=== PATIENT | male | born 1960 | race Caucasian/White ===

== ENCOUNTER 2023-02-08 15:14 | Outpatient (OUT) | payer OTHER, SELFPAY ==
[2023-02-08 15:31] LABS: Hematocrit 41.2 % (42.0-54.0); Mean Corpuscular Hemoglobin 33.3 pg (25.9-34.0); Mean Corpuscular Volume 98.1 fL (80.0-94.0); Mean Platelet Volume 8.7 fL (9.5-13.5); Platelet Count 324 10^3/uL (150-450); Red Cell Distribution Width 11.7 % (11.0-15.0); White Blood Count 11.3 10^3/uL (4.0-11.0)
[2023-02-08 15:48] LABS: Eosinophils Absolute Manual 3.61 10^3/uL (0.00-0.70); Lymphocytes Absolute Manual 3.61 10^3/uL (1.20-3.80); Monocytes Absolute Manual 0.22 10^3/uL (0.30-0.80); Segmented Neut Absolute Manual 3.84 10^3/uL (1.4-6.5)
[2023-02-08 15:49] LABS: Macrocytosis 1+
[2023-02-08 16:09] LABS: Anion Gap 15.1; BUN Creatinine Ratio 15.5; Calcium 8.8 mg/dL (8.5-10.1); Carbon Dioxide 27.3 mmol/L (21.0-32.0); Chloride 93 mmol/L (98-107); Chol HDL Ratio 2.6; Cholesterol 200 mg/dL (<=200); Estimated GFR (African America >60 (>=60); Estimated GFR (Non-African Ame >60 (>=60); Glucose 87 mg/dL (74-106); HDL Cholesterol 77 mg/dL (40-60); Potassium 4.4 mmol/L (3.5-5.1); Sodium 131 mmol/L (136-145); Triglycerides 74 mg/dL (<=150); VLDL CHOLESTEROL 14.8 mg/dL
[2023-02-08 16:23] LABS: Prostate Specific Antigen Scrn 1.62 ng/mL (<=4.00)
== END 2023-02-08 15:15 | disposition home or self-care (01) ==
LOC: LAB 15:14
PROVIDERS: PCP Family Medicine; Visit Provider Family Medicine
DX: Z00.00 Encounter for general adult medical examination without abnormal findings (principal); I10 Essential (primary) hypertension; Z12.5 Encounter for screening for malignant neoplasm of prostate
CPT/HCPCS: 36415; 80048; 80061; 85027; G0103

== ENCOUNTER 2024-02-14 15:13 | Outpatient (OUT) | payer OTHER, SELFPAY ==
[2024-02-14 15:54] LABS: Anion Gap 14.5; BUN Creatinine Ratio 11.5; Calcium 8.8 mg/dL (8.5-10.1); Carbon Dioxide 24.8 mmol/L (21.0-32.0); Chloride 92 mmol/L (98-107); Estimated GFR (African America >60 (>=60 mL/min/1.73m^2); Estimated GFR (Non-African Ame >60 (>=60 mL/min/1.73m^2); Glucose 96 mg/dL (74-106); Potassium 4.3 mmol/L (3.5-5.1); Sodium 127 mmol/L (136-145)
== END 2024-02-14 15:14 | disposition home or self-care (01) ==
LOC: LAB 15:15
PROVIDERS: PCP Family Medicine; Visit Provider Student in an Organized Health Care Education/Training Program
DX: I1A.0 Resistant hypertension (principal)
CPT/HCPCS: 36415; 80048

== ENCOUNTER 2024-06-02 07:05 | Outpatient (OUT) | payer OTHER, SELFPAY ==
--- OUTSIDE RECORDS SUMMARY | 2024-06-02 07:11 | XMS_ITS | CCD ---
Author Organization [facility] Care Team Providers Care Merchandise Execution Leader Name Role Phone HOUSE, DR CROCKER Consulting Unavailable ROSELLE, DR CROCKER Primary Care Unavailable ROSELLE, DR CROCKER Admitting Unavailable ROSELLE, DR CROCKER Attending Unavailable Cowden, DR Doll Consulting Unavailable ROSELLE, DR CORCKER Primary Care Unavailable ROSELLE, DR CROCKER Admitting Unavailable ROSELLE, DR CROCKER Attending Unavailable ROSELLE, DR CROCKER Consulting Unavailable Maida Vaca Unavailable Sarah Mane Unavailable MD Maida Vaca Primary Care Provider [phone] MD Richard Mallory Attending Provider MELIA MCCLELLAN Attending Unavailable MELIA MCCLELLAN Attending Unavailable KIRK LOYD Attending Unavailable MAIDA VACA Referring Unavailable KIRK LOYD Referring Unavailable MD Maida Vcaa Primary Care Provider DO Eduard Vazquez Attending Provider [phone] Maida Vaca Primary Care Unavailable Richard Mallory Admitting Obie Mallory, Richard Ladd Attending Maida Truong Primary Care Unavailable Eduard Vazquez Admitting Unavailable Eduard Vazquez Attending Unavailable Maida Vaca Primary Care Unavailable Richard Mallory Admitting Unavai lable Richard Mallory Attending Maida Truong Primary Care Unavailable Richard Mallory Admitting Unavai lable Rihcard Mallory Attending Maida Truong Primary Care Unavailable Richard Mallory Admitting Unavai lable Shawnee, Richard Ladd Attending Maida Truong Primary Care Unavailable Eduard Vazquez Attending Unavailable Eduard Vazquez Admitting Unavailable Maida Vaca Primary Care Unavailable Eduard Vazquez Admitting Unavailable Eduard Vazquez Attending Unavailable Allergies Allergy Classification Reported Allergen(s) Allergy Type Date of Onset Reaction(s) Facility (10 sources) Cortisone Drug Allergy [employer] [facility] Other (1 source) Cortisone Drug Allergy 01-20-2024 [facility] Repository Medications Current Medications Medication Drug Class(es) Dates Sig (Normalized) Sig (Original) ALPRAZolam 0.5 mg oral tablet (2 sources) Benzodiazepine Start: 01-06-2024 Alprazolam (Xanax) 0.5 mg tablet Active 0.5 MG PO Daily 2 January 06, 2024 12:00am take one tablet 1/2 hour prior to MRI. july repeat once if necessary amLODIPine 10 mg oral tablet (20 sources) Dihydropyridine Calcium Channel Tereso Start: 08-12-2023 End: 09-06-2023 take 10 mg by mouth once daily Amlodipine Active 10 MG PO Daily 90 September 06, 2023 11:33am Start: 07-29-2023 End: 08-12-2023 take 5 mg by mouth once daily Amlodipine Discontinued 5 MG PO Daily July 29, 2023 12:00am August 12, 2023 10:42am Start: 07-04-2023 End: 07-29-2023 take 1 tablet by mouth once daily Amlodipine Discontinued 0 .ROUTE .COMPLEX July 04, 2023 3:42pm July 29, 2023 1:57pm take 1 tablet by mouth daily Start: 07-02-2023 End: 07-04-2023 take 1 tablet by mouth once daily Amlodipine Discontinued 0 .ROUTE .COMPLEX July 02, 2023 2:53pm July 04, 2023 3:42pm take 1 tablet by mouth daily Start: 06-13-2023 End: 07-02-2023 take 1 tablet by mouth once daily Amlodipine (Norvasc) 5 mg tablet Discontinued 5 MG PO Daily June 13, 2023 12:00am July 02, 2023 2:53pm carvedilol 12.5 mg oral tablet (15 sources) alpha-Adrenergic Tereso, beta-Adrenergic Tereso Start: 08-12-2023 End: 09-06-2023 take 1 tablet by mouth twice daily at mealtime Carvedilol (Coreg) 12.5 mg tablet Active 12.5 MG PO Twice daily 180 90 September 06, 2023 11:32am must administer with a meal/food Start: 07-29-2023 End: 08-12-2023 take 1 tablet by mouth twice daily at mealtime Carvedilol (Coreg) 6.25 mg tablet Discontinued 6.25 MG PO Twice daily 60 30 July 29, 2023 12:00am August 12, 2023 10:41am must administer with a meal/food cetirizine hydrochloride 10 mg oral tablet (4 sources) Histamine-1 Receptor Antagonist Start: 02-04-2020 take 1 tablet by mouth every twenty-four hours Cetirizine HCl 10 MG 1 tablet Orally Once a day for 30 day(s) Jan, Active cloNIDine hydrochloride 0.1 mg oral tablet (20 sources) Central alpha-2 Adrenergic Agonist Start: 08-12-2023 End: 09-06-2023 take 0.1 mg by mouth twice daily Clonidine Hcl Active 0.1 MG PO Twice daily 180 90 September 06, 2023 11:33am Start: 06-06-2023 End: 08-12-2023 take 0.2 mg by mouth twice daily Clonidine Hcl Discontinued 0.2 MG PO Twice daily 60 June 06, 2023 12:00am August 12, 2023 10:40am Start: 05-29-2023 End: 06-06-2023 take 0.1 mg by mouth twice daily Clonidine Hcl Discontinued 0.1 MG PO Twice daily 60 May 29, 2023 1:00am June 06, 2023 3:54pm doxycycline hyclate 100 mg oral tablet (1 source) Tetracycline-class Drug Doxycycl ine Hyclate 100 MG Oral for 30 Days Active fluticasone propionate 0.05 mg/actuat metered dose nasal spray (4 sources) Corticosteroid Start: 020 take 1 spray(s) nasal route once daily Fluticasone Propionate 50 MCG/ACT 1 spray in each nostril Nasally Once a day for 30 day(s) Jan, Active 30 actuat fluticasone furoate 0.1 mg/actuat / umeclidinium 0.0625 mg/actuat / vilanterol 0.025 mg/actuat dry powder inhaler (4 sources) Anticholinergic, Corticosteroid, beta2-Adrenergic Agonist take 1 puff(s) by inhalation once daily Trelegy Ellipta 100-62.5-25 MCG/ACT 1 puff Inhalation Once a day Active lisinopril 20 mg oral tablet (18 sources) Angiotensin Converting Enzyme Inhibitor Start: End: take 20 mg by mouth once daily Lisinopril Active 20 MG PO Daily 90 90 September 06, 2023 11:33am take 1 tablet by jill th every twenty-four hours Lisinopril 20 MG 1 tablet once a day Active Completed/Discontinued Medications Medication Drug Class(es) Dates Sig (Normalized) Sig (Original) LORazepam 1 mg oral tablet (20 sources) Benzodiazepine Start: 05-27-2023 End: 12-26-2023 take 1 tablet by mouth twice daily Lorazepam Discontinued 1 MG PO Twice daily 60 30 May 28, 2023 1:55pm June 26, 2023 12:53pm [employer] tablet Orally twice a day; Note: Source Status: Refill; Refills: 0; Provider: Jaron Russell Start: 04-30-2023 take 1 tablet by jill th every twelve hours LORazepam 1 MG 1 tablet Orally twice a day for 30 days Apr, Active Start: 04-01-2023 take 1 tablet by jill th every twelve hours LORazepam 1 MG 1 tablet Orally twice a day for 30 days Mar, Active Start: 02-28-2023 take 1 tablet by jill th every twelve hours LORazepam 1 MG 1 tablet Orally twice a day for 30 days Feb, Active Start: 01-29-2023 take 1 tablet by jill th every twelve hours LORazepam 1 MG 1 tablet Orally twice a day for 30 days Jan, Active Start: 12-31-2022 take 1 tablet by jill th every twelve hours LORazepam 1 MG 1 tablet Orally twice a day for 30 days Dec, Active Start: 12-03-2022 take 1 tablet by jill th every twelve hours LORazepam 1 MG 1 tablet Orally twice a day for 30 days Nov, Active Start: 10-29-2022 take 1 tablet by jill th every twelve hours LORazepam 1 MG 1 tablet Orally twice a day for 30 days Oct, Active 24 hr metoprolol succinate 50 mg extended release oral tablet (20 sources) beta-Adrenergic Tereso Start: 06-06-2023 End: 07-29-2023 take 1 tablet by mouth twice daily Metoprolol Succinate Discontinued 50 MG PO Twice daily June 06, 2023 3:31pm July 29, 2023 1:27pm [employer] tablet Orally Once a day; Note: Source Status: Start; Provider: Jaron Russell Start: 05-27-2023 End: 06-06-2023 take 1 tablet by mouth once daily Metoprolol Succinate Discontinued 50 MG PO Daily May 27, 2023 1:00am June 06, 2023 3:31pm [employer] tablet Orally Once a day; Note: Source Status: Start; Provider: Jaron Russell Start: 05-16-2023 End: 06-06-2023 take 50 mg by mouth every twelve hours Metoprolol Tartrate Discontinued 50 MG PO Every 12 hours 60 May 16, 2023 1:00am June 06, 2023 3:30pm Start: 04-23-2023 take 1 tablet by jill th every twenty-four hours Metoprolol Succinate ER 50 MG 1 tablet Orally Once a day for 90 days Mar, Active omeprazole 40 mg delayed release oral capsule (20 sources) Proton Pump Inhibitor Start: 05-27-2023 End: 09-09-2023 take 40 mg by mouth once daily Omeprazole Discontinued 40 MG PO Daily 90 June 22, 2023 9:18am September 09, 2023 8:31am take 1 capsule by mouth once jeanmarie ly Omeprazole 40 MG 1 capsule 30 minutes before morning meal Orally Once a day Active Problems Active Problems Problem Classification Problem Date Documented Date Episodic/Chronic Anxiety disorders (20 sources) Anxiety; Translations: [Anxiety disorder, unspecified] Chronic Essential hypertension (20 sources) Essential hypertension; Translations: [Essential (primary) hypertension] Onset: 07-29-2023 Chronic Inflammation; infection of eye (except that caused by tuberculosis or sexually transmitteddisease) (1 source) Hordeolum externum left upper eyelid Episodic Other non-traumatic joint disorders (10 sources) Pain in left knee; Translations: [Left medial knee pain] Onset: 12-03-2023 11-26-2023 Episodic Other non-traumatic joint disorders (1 source) Liposynovitis prepatellaris; Translations: [Other specified joint disorders, left knee] 01-20-2024 Episodic Other non-traumatic joint disorders (1 source) Other specified joint disorders, left knee; Translations: [Other specified disorders of joint, lower leg] 01-20-2024 Episodic Other screening for suspected conditions (not mental disorders or infectious disease) (15 sources) Encounter for screening for malignant neoplasm of prostate; Translations: [Electrocardiogram abnormal] Episodic Other upper respiratory infections (1 source) Acute maxillary sinusitis, unspecified Episodic Sprains and strains (8 sources) Injury of articular cartilage of left knee joint; Translations: [Sprain of other specified parts of left knee, initial encounter] Onset: 01-20-2024 12-03-2023 Episodic Substance-related disorders (11 sources) Smoker; Translations: [Nicotine dependence, unspecified, uncomplicated] Chronic Unclassified (1 source) Resistant hypertension; Translations: [Resistant hypertension] Onset: 08-08-2023 Past or Other Problems Problem Classification Problem Date Documented Da te Episodic/Chronic Other injuries and conditions due to external causes (1 source) Other specified injuries of left ankle, initial encounter; Translations: [OTH SPEC INJURIES LT ANKLE INITIAL] Onset: 06-08-2021 Episodic Other lower respiratory disease (1 source) Dyspnea, unspecified; Translations: [Dyspnea, unspecified] Onset: 08-13-2023 Episodic Other non-traumatic joint disorders (4 sources) Pain in left ankle and joints of left foot; Translations: [PAIN IN LEFT ANKLE] Onset: 06-07-2021 Episodic Results Test Name Value Interpretation Reference Range Facility XR hip LT min 2V(w/wo pelvis )*on 01-20-2024 XR hip LT min 2V(w/wo pelvis)* [facility] [address] [place] [address] XRay Report Signed Patient: Donavon Fletcher MR#: [id number] : 1960 Acct:[id number] Age/Sex: 63 / M ADM Date: 01/20/24 Loc: [facility] Room: Type: [facility] Attending Dr: Eduard Vazquez DO Copies to: Eduard Vazquez DO Ordering Provider: Eduard Vazquez DO Date of Service: 01/20/24 XR/XR hip LT min 2V(w/wo pelvis)*: M25.562 - Pain in left knee 2 views LEFT hip with single view pelvis plain film COMPARISON: None HISTORY: Low lumbar pain with radiation into the LEFT leg ACUTE FINDINGS: None DEGENERATIVE CHANGE: Minor marginal spurring of hip joints. SOFT TISSUE FINDINGS: Unremarkable JOINT EFFUSION: None POSTOP CHANGES: None BONY MINERALIZATION: Adequate XR/XR hip LT min 2V(w/wo pelvis)* IMPRESSION: Mild degenerative change Impression dictated by: Chapito Peace M.D.01/20/2024 3:33 PM Dictation Location: [facility]- Transcribed By: [facility] 01/20/24 153 Dictated By: Chapito Peace DO 01/20/241531 Signed By: 01/20/241532 Normal [facility] MR knee LT wo conon 01-16-20 MR knee LT wo con [facility] [place] [address] MRI Report Signed Patient: Donavon Fletcher MR#: [id number] : 1960 Acct:[id number] Age/Sex: 63 / M ADM Date: 01/16/24 Loc: [facility] Room: Type: [facility] Attending Dr: Eduard Vazquez DO Copies to: Eduard Vazquez DO Ordering Provider: Eduard Vazquez DO Date of Service: 01/16/24 MR/MR knee LT wo con: eval for meniscus tear or other injury MR knee LT wo con 01/16/2024 11:54 AM SIGNS AND SYMPTOMS: eval for meniscus tear or other injury PROTOCOL: Multiplanar multisequence MR images of the left knee were obtained without IV contrast COMPARISON: None. FINDINGS: Fluid: No joint effusion.. Medial compartment: Medial meniscus: Intact. Medial collateral ligament: Intact. Medial femoral condyle cartilage: Preserved. Medial tibial plateau cartilage: Preserved. Lateral compartment: Lateral meniscus: Intact. Lateral collateral ligament: Intact. Lateral femoral condyle cartilage: Preserved. Lateral tibial plateau cartilage: Preserved. Posterolateral corner: Popliteus tendon: Intact. Popliteofibular ligament: Intact. Proximal tibiofibular joint: Intact. Anterior compartment: Alignment: Normal. Quadriceps tendon: Intact. Patellar tendon: Intact. Retinaculum: Medial intact. Lateral intact. Patellar cartilage: Preserved. Trochlea: Preserved. . Plica: None. Hoffa fat pad: Normal. There is edema in the quadriceps fat pad suspicious for quadriceps fat pad impingement. Intercondylar compartment: Anterior cruciate ligament: Intact. Posterior cruciate ligament: Intact. Bones (other than subarticular marrow): Normal. Muscles: Normal. Vessels: Normal. Nerves: Normal. MR/MR knee LT wo con IMPRESSION: There is edema in the quadriceps fat pad suspicious for quadriceps fat pad impingement. The left knee is otherwise grossly intact. Impression dictated by: Randolph Diego M.D.01/16/2024 3:31 PM Dictation Location: [place] [address] Transcribed By: [facility] 01/16/24 1531 Dictated By: Randolph Diego II, MD 01/16/24 1523 Signed By: 01/16/24 1531 Normal [facility] XR knee LT 4V*on 12-03-2023 XR knee LT 4V* [facility] [address] [place] [address] XRay Report Signed Patient: Donavon Fletcher MR#: [id number] : 1960 Acct:[id number] Age/Sex: 63 / M ADM Date: 12/03/23 Loc: [facility] Room: Type[facility] Attending Dr: Eduard Vazquez DO Copies to: Eduard Vazquez DO Ordering Provider: Eduard Vazquez DO Date of Service: 12/03/23 XR/XR knee LT 4V*: M25.562 - Pain in left knee ([id number]) XR/XR knee RT 2V: M25.562 - Pain in left knee CLINICAL DATA: Left medial knee pain for months. No injury. Right knee comparison. LEFT KNEE - 4 views COMPARISON: None Weightbearing AP, lateral, skiers and sunrise views were obtained. No acute fracture or dislocation is identified. There is subtle medial tibiofemoral joint compartment narrowing. There is no patellar subluxation. No hypertrophy is seen. There is no knee effusion or focal soft tissue swelling. XR/XR knee RT 2V IMPRESSION: NO ACUTE BONY FINDINGS. RIGHT KNEE - 2 views COMPARISON: None Weightbearing AP and sunrise views were obtained. There is no acute fracture or dislocation. There is subtle narrowing at the medial tibiofemoral joint compartment. No patellar subluxation is identified. No hypertrophy is seen. There is no soft tissue swelling. IMPRESSION: NO ACUTE BONY FINDINGS. Impression dictated by: Annabelle Wang M.D.12/03/2023 9:27 AM Dictation Location: [place] [address] Transcribed By: [facility] 12/03/23926 Dictated By: Annabelle Wang MD 12/03/23924 Signed By: 12/03/23926 Normal [facility] ECH echo transthoracicon ECH echo transthoracic [facility] [place] [address] Echocardiogram Signed Patient: Donavon Fletcher MR#: [id number] : 1960 Acct:[id number] Age/Sex: 63 / M ADM Date: 08/13/23 Loc: Room: Type: [facility] Attending Dr: Richard Mallory MD Ordering Provider: Richard Mallory MD Date of Service: 08/13/23 [facility] transthoracic: I10 - Essential (primary) hypertension Copies to: Richard Mallory MD Donavon 10:28 AM Patient Location: : 1960 Gender: Male (MM/DD/YYYY) Age: 63 Years Ordering Physician: Richard Mallory Height: 70.87 in Weight: 176.004 lb Performed By: Margareth Brito RDCS BSA: 1.99 m2 BP: 133 / 99 mmHg HR: 79 bpm Reason For Study: Essential (primary) hypertension History: HTN. Smoker. COPD. + + Interpretation Summary Ejection Fraction = 55-60%. A variety of Doppler measurements indicate normal left ventricular diastolic function. The left ventricular wall motion is normal. The left ventricular size and thickness are normal. Mildly dilated ascending aorta. There is no comparison study available. Procedure/Quality: A two-dimensional transthoracic echocardiogram with color flow and Doppler was performed. The study was technically good in quality. Left Ventricle: The left ventricular size and thickness are normal. Ejection Fraction = 55-60%. A variety of Doppler measurements indicate normal left ventricular diastolic function. The left ventricular wall motion is normal. Left Atrium: The left atrium appears normal in size. Right Atrium: The right atrium appears normal in size. Right Ventricle: The right ventricle is normal in size and function. Aortic Valve: The aortic valve is trileaflet. The aortic valve is normal in structure. No hemodynamically significant valvular aortic stenosis. No aortic regurgitation is present. Mitral Valve: The mitral valve is normal in structure. No significant mitral valve stenosis. There is no mitral regurgitation noted. Tricuspid Valve: The tricuspid valve is normal in structure. No tricuspid regurgitation. Pulmonic Valve: The pulmonic valve is not well visualized. No significant pulmonic regurgitation. Arteries: The aortic root is normal size. Mildly dilated ascending aorta. Ascending aorta 4.0 cm. Pericardium/Pleura: No pericardial effusion seen. There is no pleural effusion. IVC/Hepatic Veins: The inferior vena cava is normal in size, with a normal collapsibility index. MMode/2D Measurements Calculations IVSd (0.7-1.1 cm): 0.86 cm LVIDd (3.7-5.4 cm): 4.9 cm LVPWd (0.7-1.1 cm): 0.94 cm LVIDs (2.3-3.6 cm): 3.0 cm FS: 39.1 % Ao root diam (2.0-3.2 cm): 3.5 cm EDV(Teich): 115.0 ml Ao root area: 9.8 cm2 ESV(Teich): 35.3 ml LVOT diam: 2.13 cm EF(Teich): 69.4 % LVOT area: 3.6 cm2 LAV(MOD-sp2): 21.1 ml LAV(MOD-sp4): 22.8 ml LA A2 area: 10.0 cm2 LA A4 area: 11.8 cm2 LA length (vol): 4.8 cm LA vol: 20.9 ml LA vol index: 10.5 ml/m2 Doppler Measurements Calculations MV E max kelly: 59.6 cm/sec Ao V2 max: 128.1 cm/sec MV A max kelly: 87.5 cm/sec Ao max P.6 mmHg MV dec time: 0.16 sec Ao mean P.2 mmHg MV dec slope: 364.1 cm/sec?? Ao V2 mean: 98.5 cm/sec E/E' lat: 5.3 Ao V2 VTI: 23.1 cm E/E' med: 8.4 ALE(I,D): 3.4 cm2 ALE(V,D): 3.3 cm2 RAP systole: 3.0 mmHg LV V1 max: 119.4 cm/sec LV V1 max P.7 mmHg LV V1 mean: 83.4 cm/sec LV V1 mean P.7 mmHg LV V1 VTI: 22.0 cm + + + + + : Electronically : : : : signed by: Richard : : [place] : : : : : : on: 08/13/2023, : : 1:28 PM : Transcribed By: SAM Performed At: 08/13/23 1028 Signed By: Richard Mallory MD 08/13/23 1328 Normal [facility] US renal doppleron 4 [place] [address] Ultrasound Report Signed Patient: Donavon Fletcher MR#: [id number] : 1960 Acct:[id number] Age/Sex: 63 / M ADM Date: 08/13/23 Loc: Room: Type: [facility] Attending Dr: Richard Mallory MD Ordering Provider: Richard Mallory MD Date of Service: 08/13/23 US/US renal doppler: I10 - Essential (primary) hypertension Copies to: Richard Mallory MD Renal artery duplex examination performed using B-mode, color flow and spectral Doppler assessment. (CPT: 08493) INDICATION: Hypertension FINDINGS: Aorta: PSV 86 cm/s Right Kidney Size: 12.1 cm x 5.03 cm x 5.17 cm Left Kidney Size: 12.41 cm x 5.96 cm x 5.2 cm Right renal artery origin: PSV 55.9 cm/s Right proximal renal artery: PSV 58.2 cm/s Right mid renal artery: PSV 133 cm/s Right distal renal artery: PSV 116 cm/s RI: 0.71 RAR: 0.69 Left renal artery origin: PSV 38.7 cm/s Left proximal renal artery: PSV 72.3 cm/s Left mid renal artery: PSV 85.1 cm/s Left distal renal artery: PSV 121 cm/s RI: 0.77 RAR: 0.84 US/US renal doppler IMPRESSION: No evidence of hemodynamically significant renal artery stenoses, bilaterally. An anechoic structure was identified at the inferior pole the right kidney measuring 4.2 x 4.4 x 4.5 cm. This may represent a renal cyst. Impression dictated by: Noe Hernadez MD08/13/2023 3:18 PM Dictation Location: [place] [address] Tech: Michaela Mccullough Transcribed By: CHRISTINA 08/13/231517 Dictated By: Noe Hernadez MD 08/13/231516 Signed By: 08/13/231517 Normal [facility] Basic Metabolic Panelon 05 GFR/1.73 sq M.predicted MDRD (S/P/Bld) [Vol rate/Area] mL/min/{1.73_m2} Normal [facility] Comment on above: Performed By: #### B MP #### [place] [address] [place] Calcium [Mass/volume] in Ser um or PlasmaOrdered By: Richard Mallory on 08-08-2023 Calcium [Mass/Vol] 9.5 mg/dL Normal 8.6-10.3 [facility] Comment on above: Result Comment: PERF ORMED BY: [place] [address] PATHOLOGIST CONTINUOUS IMPROVEMENT ENGINEER MARIA ISABEL NEUMANN M.D. Performed By: #### B MP #### [place] [address] [place] Carbon dioxide, total [Moles /volume] in Serum or PlasmaOrdered By: Richard Mallory on 08-08-2023 CO2 [Moles/Vol] 26.7 mmol/L Normal 21.0-31.0 [facility] Comment on above: Performed By: #### B MP #### [place] [address] [place] Chloride [Moles/volume] in S viet or PlasmaOrdered By: Richard Mallory on 08-08-2023 Chloride [Moles/Vol] 100 mmol/L Normal 98-107 [facility] Comment on above: Performed By: #### B MP #### [facility] [address] [place] [address] [place] Creatinine [Mass/volume] in Serum or PlasmaOrdered By: Richard Mallory on 08-08-2023 Creatinine [Mass/Vol] 0.90 mg/dL Normal 0.70-1.30 [facility] Comment on above: Performed By: #### B MP #### [place] [address] [place] Glucose [Mass/volume] in Ser um or PlasmaOrdered By: Richard Mallory on 08-08-2023 Glucose [Mass/Vol] 88 mg/dL Normal 70-100 [facility] Comment on above: ADA recommended refe rence rangeRandom Glucose Reference Range is dependent on time and content of last meal. Glucose of more than 200 mg/dL in a nonstressed, ambulatory subject supports the diagnosis of Diabetes Mellitus. Result Comment: [place] Glucose Reference Range is dependent on time and content of last meal. Glucose of more than 200 mg/dL in a nonstressed, ambulatory subject supports the diagnosis of Diabetes Mellitus. ADA recommended reference range Performed By: #### B MP #### [address] No Panel InformationOrdered By: Richard Mallory on 08-08-2023 Estimated GFR (CKD-EPI) > 60.0 mL/Min [facility] Creatinine Clearance (Chem N/A [facility] Potassium [Moles/volume] in Serum or PlasmaOrdered By: Richard Mallory on 08-08-2023 Potassium [Moles/Vol] 4.5 mmol/L Normal 3.5-5.1 [facility] Comment on above: Performed By: #### B MP #### [address] Serum or plasma anion gap de terminationOrdered By: Richard Mallory on 08-08-2023 Anion gap [Moles/Vol] 11.8 mmol/L Normal 6.0-15.0 [facility] Comment on above: Performed By: #### B MP #### [address] Sodium [Moles/volume] in Ser um or PlasmaOrdered By: Richard Mallory on 08-08-2023 Sodium [Moles/Vol] 134 mmol/L Low 136-145 [facility] Comment on above: Performed By: #### B MP #### [address] Urea nitrogen [Mass/volume] in Serum or PlasmaOrdered By: Richard Mallory on 08-08-2023 Urea nitrogen [Mass/Vol] 12 mg/dL Normal 7-25 [facility] Comment on above: Performed By: #### B MP #### [place] [address] [place] Aldosteroneon 07-29-2023 Aldosterone 5.4 ng/dL Normal 0.0-30.0 [facility] Group Comment on above: Order Comment: Patie nt Posture before Draw (see Test/Proc Notes):: SITTING Result Comment: This test was developed and its performance characteristics determined by [facility]. It has not been cleared or approved by the Food and Drug Administration. Performed at: [address] [id number] Fiber Optics Engineer: Divine Callejas MD, Phone: [phone] PERFORMED BY: [place] [address] PATHOLOGIST CONTINUOUS IMPROVEMENT ENGINEER MARIA ISABEL NEUMANN M.D. Performed By: #### B MP #### [address] #### RENACT, ALD #### [facility] , Basic Metabolic Panelon GFR/1.73 sq M.predicted MDRD (S/P/Bld) [Vol rate/Area] mL/min/{1.73_m2} Normal [facility] Comment on above: Performed By: #### B MP #### [place] [address] [place] #### RENACT, ALD #### [facility] , Calcium [Mass/volume] in Ser um or PlasmaOrdered By: Richard Mallory on 07-29-2023 Calcium [Mass/Vol] 10.0 mg/dL Normal 8.6-10.3 [facility] Comment on above: Result Comment: PERF ORMED BY: [place] [address] PATHOLOGIST CONTINUOUS IMPROVEMENT ENGINEER MARIA ISABEL NEUMANN M.D. Performed By: #### B MP #### [place] [address] [place] #### RENACT, ALD #### [facility] , Carbon dioxide, total [Moles /volume] in Serum or PlasmaOrdered By: Richard Mallory on 07-29-2023 CO2 [Moles/Vol] 26.2 mmol/L Normal 21.0-31.0 [facility] Comment on above: Performed By: #### B MP #### [facility] [address] [place] [address] [place] #### RENACT, ALD #### [facility] , Chloride [Moles/volume] in S viet or PlasmaOrdered By: Richard Mallory on 07-29-2023 Chloride [Moles/Vol] 99 mmol/L Normal 98-107 [facility] Comment on above: Performed By: #### B MP #### [facility] [address] [place] [address] [place] #### RENACT, ALD #### [facility] , Creatinine [Mass/volume] in Serum or PlasmaOrdered By: Richard Mallory on 07-29-2023 Creatinine [Mass/Vol] 0.88 mg/dL Normal 0.70-1.30 [facility] Comment on above: Performed By: #### B MP #### [facility] [address] [place] [address] [place] #### RENACT, ALD #### [facility] , FPG ECG *OFFICE ONLY*on FPG ECG *OFFICE ONLY* [facility] [place] [address] [place] [address] Electrocardiograph Report Signed Patient: Donavon Fletcher MR#: [id number] : 1960 Acct:[id number] Age/Sex: 63 / M ADM Date: 07/29/23 Loc: EKGCARDIO Room: Type: [facility] Attending Dr: Richard Mallory MD Ordering Provider: Richard Mallory MD Date of Service: 07/29/2309/15/1318 ECG/FPG ECG *OFFICE ONLY*: I10 - Essential (primary) hypertension Copies to: Test Reason : Blood Pressure : / mmHG Vent. Rate : 103 BPM Atrial Rate : 103 BPM P-R Int : 182 ms QRS Dur : 082 ms QT Int : 334 ms P-R-T Axes : 073 032 059 degrees QTc Int : 437 ms Sinus tachycardia Borderline criteria for Left ventricular hypertrophy Abnormal ECG No previous ECGs available Confirmed by Richard Mallory ([id number]) on 07/29/2023 2:17:14 PM Referred By: Electronically Signed By:Richard Mallory Transcribed By: MUS Signed By Richard Mallory MD 07/29/23 1417 Normal [facility] Glucose [Mass/volume] in Ser um or PlasmaOrdered By: Richard Mallory on 07-29-2023 Glucose [Mass/Vol] 89 mg/dL Normal 70-100 [facility] Comment on above: ADA recommended refe rence rangeRandom Glucose Reference Range is dependent on time and content of last meal. Glucose of more than 200 mg/dL in a nonstressed, ambulatory subject supports the diagnosis of Diabetes Mellitus. Result Comment: [place] om Glucose Reference Range is dependent on time and content of last meal. Glucose of more than 200 mg/dL in a nonstressed, ambulatory subject supports the diagnosis of Diabetes Mellitus. ADA recommended reference range Performed By: #### B MP #### [facility] [address] [place] [address] [place] #### RENACT, ALD #### [facility] , No Panel InformationOrdered By: Richard Mallory on 07-29-2023 Estimated GFR (CKD-EPI) > 60.0 mL/Min [facility] Creatinine Clearance (Chem N/A [facility] Potassium [Moles/volume] in Serum or PlasmaOrdered By: Richard Mallory on 07-29-2023 Potassium [Moles/Vol] 4.9 mmol/L Normal 3.5-5.1 [facility] Comment on above: Performed By: #### B MP #### [facility] [address] [place] [address] [place] #### RENACT, ALD #### [facility] , Renin Activityon 07-29-2023 Renin Activity 1.004 Normal 0.167-5.38 0 [facility] Comment on above: Order Comment: Patie nt Posture before Draw (see Test/Proc Notes):: SITTING Result Comment: This test was developed and its performance characteristics determined by [facility]. It has not been cleared or approved by the Food and Drug Administration. Performed at: [address] [id number] Fiber Optics Engineer: Divine Callejas MD, Phone: [phone] PERFORMED BY: [place] [address] PATHOLOGIST CONTINUOUS IMPROVEMENT ENGINEER MARIA ISABEL NEUMANN M.D. Performed By: #### B MP #### [facility] [address] [place] [address] #### RENACT, ALD #### [facility] , Renin activityOrdered By: Joseph Mallory on 07-29-2023 Renin (P) [Catalytic activity/Vol] 1.004 ng/mL/hr 0.167-5.38 0 [facility] Comment on above: This test was develo ped and its performance characteristicsdetermined by [facility]. It has not been cleared orapproved by the Food and Drug Administration.Performed at: [address] [id number] Director: Divine Callejas MD, Phone: [phone] Serum or plasma aldosterone measurement (mass/volume)Ordered By: Richard Mallory on 07-29-2023 Aldosterone [Mass/Vol] 5.4 ng/dL 0.0-30.0 [facility] Comment on above: This test was develo ped and its performance characteristicsdetermined by [facility]. It has not been cleared orapproved by the Food and Drug Administration.Performed at: [address] [id number] Director: Divine Callejas MD, Phone: [phone] Serum or plasma anion gap de terminationOrdered By: Richard Mallory on 07-29-2023 Anion gap [Moles/Vol] 15.7 mmol/L High 6.0-15.0 [facility] Comment on above: Performed By: #### B MP #### [facility] [address] [place] [address] #### RENACT, ALD #### [facility] , Sodium [Moles/volume] in Ser um or PlasmaOrdered By: Richard Mallory on 07-29-2023 Sodium [Moles/Vol] 136 mmol/L Normal 136-145 [facility] Comment on above: Performed By: #### B MP #### [facility] [address] [place] [address] [place] #### RENACT, ALD #### [facility] , Urea nitrogen [Mass/volume] in Serum or PlasmaOrdered By: Richard Mallory on 07-29-2023 Urea nitrogen [Mass/Vol] 11 mg/dL Normal 7-25 [facility] Comment on above: Performed By: #### B MP #### [facility] [address] [place] [address] [place] #### RENACT, ALD #### [facility] , CBC W MANUAL DIFFon 02-02-20 22 ATYPICAL LYMPH # Normal [facility] Comment on above: Performed By: #### C KIMI #### [facility] [address] [address] [address] Kaykay Easton ATYPICAL LYMPH % Normal [facility] Comment on above: Performed By: #### C BCJANNA #### [facility] [address] [address] [address] Kaykay Easton BAND # 0.0 103/ul Normal 0.0-0.3 [facility] Comment on above: Performed By: #### C BCMAN #### [facility] [address] [address] [address] Kaykay Easton BAND % 0 % Normal 0-5 [facility] Comment on above: Performed By: #### C BCMAN #### [facility] [address] [address] [address] Kaykay Easton BASOM # 0.00 103/ul Normal 0.00-0.10 [facility] Comment on above: Performed By: #### C BCMAN #### [facility] [address] [address] [address] Kaykay Easton BASOM % 0.0 % Critically low 0.2-2.0 [facility] Comment on above: Performed By: #### C BCMAN #### [facility] [address] [place] [address] Dr. Kaykay Easton BLAST # Normal [facility] Comment on above: Performed By: #### C BCMAN #### [facility] [address] [place] [address] Dr. Kaykay Easton BLAST % Normal [facility] Comment on above: Performed By: #### C BCMAN #### [facility] [address] [place] [address] Dr. Kaykay Easton CORRECTED WBC Normal 4.0-11.0 [facility] Comment on above: Performed By: #### C BCJANNA #### [facility] [address] [place] [address] Dr. Kaykay Easton EOS # 10.80 103/ul Critically high 0.00-0.70 [facility] Comment on above: Performed By: #### C BCJANNA #### [facility] [address] [place] [address] Dr. Kaykay Easton EOS% 50.0 % Critically high 0.9-7.0 [facility] Comment on above: Performed By: #### C BCJANNA #### [facility] [address] [place] [address] Dr. Kaykay Easton HCT 38.4 % Critically low 42.0-54.0 [facility] Comment on above: Performed By: #### C BCMAN #### [facility] [address] [place] [address] Dr. Kaykay Easton HGB 13.5 g/dl Critically low 14.0-18.0 [facility] Comment on above: Performed By: #### C BCMAN #### [facility] [address] [place] [address] Dr. Kaykay Easton LYMPHM # 4.54 103/ul Critically high 1.20-3.80 [facility] Comment on above: Performed By: #### C BCMAN #### [facility] [address] [place] [address] Dr. Kaykay Easton LYMPHM% 21.0 % Normal 20.5-60.0 [facility] Comment on above: Performed By: #### C KIMI #### [facility] [address] [place] [address] Dr. Kaykay Easton MCH 33.1 pg Normal 25.9-34.0 [facility] Comment on above: Performed By: #### C KIMI #### [facility] [address] [place] [address] Dr. Kaykay Easton MCHC 35.2 g/dl Normal 29.9-35.2 [facility] Comment on above: Performed By: #### C KIMI #### [facility] [address] [place] [address] Dr. Kaykay Easton MCV 94.1 fL Critically high 80.0-94.0 [facility] Comment on above: Performed By: #### C KIMI #### [facility] [address] [place] [address] Dr. Kaykay Eatson METAMYELOCYTE # Normal [facility] Comment on above: Performed By: #### C KIMI #### [facility] [address] [place] [address] Dr. Kaykay Easton METAMYELOCYTE % Normal [facility] Comment on above: Performed By: #### C KIMI #### [facility] [address] [place] [address] Dr. Kaykay Easton MONOM# 0.86 103/ul Critically high 0.30-0.80 [facility] Comment on above: Performed By: #### C KIMI #### [facility] [address] [place] [address] Dr. Kaykay Easton MONOM% 4.0 % Normal 1.7-12.0 [facility] Comment on above: Performed By: #### C KIMI #### [facility] [address] [place] [address] Dr. Kaykay Easton MPV 8.4 fL Critically low 9.5-13.5 [facility] Comment on above: Performed By: #### C BCJANNA #### [facility] [address] [address] [address] Kaykay Easton MYELOCYTE # Normal [facility] Comment on above: Performed By: #### C BCJANNA #### [facility] [address] [address] [address] Kaykay Easton MYELOCYTE % Normal [facility] Comment on above: Performed By: #### C BCJANNA #### [facility] [address] [address] [address] Kaykay Easton NRBC Normal [facility] Comment on above: Performed By: #### C KIMI #### [facility] [address] [place] [address] Dr. Kaykay Easton PLT 368 103/ul Normal 150-450 [facility] Comment on above: Performed By: #### C KIMI #### [facility] [address] [place] [address] Dr. Kaykay Easton RBC 4.08 106/ul Critically low 4.70-6.10 [facility] Comment on above: Performed By: #### C KIMI #### [facility] [address] [place] [address] Dr. Kaykay Easton RDW 12.4 % Normal 11.0-15.0 [facility] Comment on above: Performed By: #### C KIMI #### [facility] [address] [place] [address] Dr. Kaykay Easton SEG # 5.40 103/ul Normal 1.40-6.50 [facility] Comment on above: Performed By: #### C BCJANNA #### [facility] [address] [place] [address] Dr. Kaykay Easton SEG % 25.0 % Critically low 43.0-75.0 [facility] Comment on above: Performed By: #### C BCJANNA #### [facility] [address] [place] [address] Dr. Kaykay Easton STOMATOCYTES 2+ Normal [facility] Comment on above: Performed By: #### C BCJANNA #### [facility] [address] [address] [address] Kaykay Easton WBC 21.6 103/ul Critically high 4.0-11.0 [facility] Comment on above: Performed By: #### C BCMAN #### [facility] [address] [place] [address] Dr. Kaykay Easton LIPID PROFILEon 02-01-2022 CHOL-HDL RATIO NORM SEE BELOW Normal [facility] Comment on above: Result Comment: 3.3 - 4.4 LOW RISK 4.4 - 7.1 AVERAGE RISK 7.1 - 11.0 MODERATE RISK >11.0 HIGH RISK Performed By: #### L IPID, CMP #### [facility] [address] [place] [address] Dr. Kaykay Easton Cholesterol [Mass/Vol] 204 mg/dL Critically high <=200 [facility] Comment on above: Performed By: #### L IPID, CMP #### [facility] [address] [place] [address] Dr. Kaykay Easton Cholesterol in HDL [Mass/Vol] 55 mg/dL Normal 40-60 [facility] Comment on above: Performed By: #### L IPID, CMP #### [facility] [address] [place] [address] Dr. Kaykay Easton Cholesterol in LDL [Mass/Vol] 133.4 mg/dL Normal [facility] Comment on above: Performed By: #### L IPID, CMP #### [facility] [address] [address] [address] Kaykay Easton Cholesterol.total/Chol esterol in HDL [Mass ratio] 3.7 {ratio} Normal [facility] Comment on above: Performed By: #### L IPID, CMP #### [facility] [address] [place] [address] Dr. Kaykay Easton HDL NORMAL > or = 60 mg/dl - LO W CARDIOVASCULAR RISK <40 mg/dl - HIGH CARDIOVASCULAR RISK Normal [facility] Comment on above: Performed By: #### L IPID, CMP #### [facility] [address] [place] [address] Dr. Kaykay Easton LDL CALC NORMAL SEE BELOW Normal [facility] Comment on above: Result Comment: <100 mg/dl OPTIMAL 100 - 129 mg/dl NEAR OR ABOVE OPTIMAL 130 - 159 mg/dl BORDERLINE HIGH 160 - 189 mg/dl HIGH >190 mg/dl VERY HIGH Performed By: #### L IPID, CMP #### [facility] [address] [address] [address] Kaykay Easton Triglyceride [Mass/Vol] 78 mg/dL Normal <=150 [facility] Comment on above: Performed By: #### L IPID, CMP #### [facility] [address] [address] [address] Kaykay Easton VLDL CALC 15.6 mg/dL Normal [facility] Comment on above: Performed By: #### L IPID, CMP #### [facility] [address] [place] [address] Dr. Kaykay Easton PROF 14(COMP METB)on 022 Albumin [Mass/Vol] 4.1 g/dL Normal 3.4-5.0 [facility] Comment on above: Performed By: #### L IPID, CMP #### [facility] [address] [place] [address] Dr. Kaykay Easton Albumin/Globulin [Mass ratio] 1.3 {ratio} Normal [facility] Comment on above: Performed By: #### L IPID, CMP #### [facility] [address] [place] [address] Dr. Kaykay Easton ALP [Catalytic activity/Vol] 97 U/L Normal 46-116 [facility] Comment on above: Performed By: #### L IPID, CMP #### [facility] [address] [place] [address] Dr. Kaykay Easton ALT [Catalytic activity/Vol] 24 U/L Normal 16-63 [facility] Comment on above: Performed By: #### L IPID, CMP #### [facility] [address] [address] [address] Kaykay Easton Anion gap [Moles/Vol] 12.5 mmol/L Normal [facility] Comment on above: Performed By: #### L IPID, CMP #### [facility] [address] [address] [address] Kaykay Easton AST [Catalytic activity/Vol] 14 U/L Critically low 15-37 [facility] Comment on above: Performed By: #### L IPID, CMP #### [facility] [address] [address] [address] Kaykay Easton Bilirubin [Mass/Vol] 0.9 mg/dL Normal 0.2-1.0 [facility] Comment on above: Performed By: #### L IPID, CMP #### [facility] [address] [address] [address] Kaykay Easton Calcium [Mass/Vol] 9.1 mg/dL Normal 8.5-10.1 [facility] Comment on above: Performed By: #### L IPID, CMP #### [facility] [address] [place] [address] Dr. Kaykay Easton Chloride [Moles/Vol] 96 mmol/L Critically low 98-107 [facility] Comment on above: Performed By: #### L IPID, CMP #### [facility] [address] [place] [address] Dr. Kaykay Easton CO2 [Moles/Vol] 25.6 mmol/L Normal 21.0-32.0 [facility] Comment on above: Performed By: #### L IPID, CMP #### [facility] [address] [place] [address] Dr. Kaykay Easton Creatinine [Mass/Vol] 0.75 mg/dL Normal 0.70-1.30 [facility] Comment on above: Performed By: #### L IPID, CMP #### [facility] [address] [place] [address] Dr. Kaykay Easton EGFR-AF PANAMANIAN >60 Normal >=60 [facility] Comment on above: Performed By: #### L IPID, CMP #### [facility] [address] [place] [address] Dr. Kaykay Easton EGFR-NON AF PANAMANIAN >60 Normal >=60 [facility] Comment on above: Performed By: #### L IPID, CMP #### [facility] [address] [address] [address] Kaykay Easton Globulin (S) [Mass/Vol] 3.2 g/dL Normal [facility] Comment on above: Performed By: #### L IPID, CMP #### [facility] [address] [address] [address] Kaykay Easton Glucose [Mass/Vol] 90 mg/dL Normal 74-106 [facility] Comment on above: Performed By: #### L IPID, CMP #### [facility] [address] [place] [address] Dr. Kaykay Easton Potassium [Moles/Vol] 4.1 mmol/L Normal 3.5-5.1 [facility] Comment on above: Performed By: #### L IPID, CMP #### [facility] [address] [place] [address] Dr. Kaykay Easton Protein [Mass/Vol] 7.3 g/dL Normal 6.4-8.2 [facility] Comment on above: Performed By: #### L IPID, CMP #### [facility] [address] [place] [address] Dr. Kaykay Easton Sodium [Moles/Vol] 130 mmol/L Critically low 136-145 [facility] Comment on above: Performed By: #### L IPID, CMP #### [facility] [address] [place] [address] Dr. Kaykay Easton Urea nitrogen [Mass/Vol] 12.0 mg/dL Normal 7.0-18.0 [facility] Comment on above: Performed By: #### L IPID, CMP #### [facility] [address] [place] [address] Dr. Kaykay Easton Urea nitrogen/Creatinine [Mass ratio] 16.0 mg/mg Normal [facility] Comment on above: Performed By: #### L IPID, CMP #### [facility] [address] [place] [address] Dr. Kaykay Easton Vital Signs Date Time Vital Sign Value Performing Clinician Facility 11-26-2023 15:40-0400 Body height 182.88 cm MD Maida Vaca Work Phone: [facility] 11-26-2023 15:40-0400 Body mass index (BMI) [Ratio] 24.1 kg/m2 MD Maida aVca Work Phone: [facility] 11-26-2023 15:40-0400 Body weight 80.73 kg MD Maida Vaca Work Phone: [facility] 11-26-2023 15:40-0400 Diastolic blood pressure 80 mm[Hg] MD Maida Vaca Work Phone: [facility] 11-26-2023 15:40-0400 Heart rate 80 /min MD Maida Vaca Work Phone: [facility] 11-26-2023 15:40-0400 Systolic blood pressure 124 mm[Hg] MD Maida Vaca Work Phone: [facility] 11-04-2023 11:17-0400 Body height 182.88 cm MD Maida Vaca Work Phone: [facility] 11-04-2023 11:17-0400 Body mass index (BMI) [Ratio] 23.8 kg/m2 MD Maida Vaca Work Phone: [facility] 11-04-2023 11:17-0400 Body weight 79.83 kg MD Maida Vaca Work Phone: [facility] 11-04-2023 11:17-0400 Diastolic blood pressure 82 mm[Hg] MD Maida Vaca Work Phone: [facility] 11-04-2023 11:17-0400 Heart rate 76 /min MD Maida Vaca Work Phone: [facility] 11-04-2023 11:17-0400 Respiratory rate 18 /min MD Maida Vaca Work Phone: [facility] 11-04-2023 11:17-0400 SaO2% (BldA) [Mass fraction] 97 % MD Maida Vaca Work Phone: [facility] 11-04-2023 11:17-0400 Systolic blood pressure 126 mm[Hg] MD Maida Vaca Work Phone: [facility] 09-11-2023 11:16-0400 Body height 182.88 cm MD Maida Vaca Work Phone: [facility] 09-11-2023 11:16-0400 Body mass index (BMI) [Ratio] 24 kg/m2 MD Maida Vaca Work Phone: [facility] 09-11-2023 11:16-0400 Body weight 80.28 kg MD Maida Vaca Work Phone: [facility] 09-11-2023 11:16-0400 Diastolic blood pressure 83 mm[Hg] MD Maida Vaca Work Phone: [facility] 09-11-2023 11:16-0400 Heart rate 74 /min MD Maida Vaca Work Phone: [facility] 09-11-2023 11:16-0400 Systolic blood pressure 137 mm[Hg] MD Maida Vaca Work Phone: [facility] 08-12-2023 10:04-0400 Body height 182.88 cm MD Maida Vaca Work Phone: [facility] 08-12-2023 10:04-0400 Body mass index (BMI) [Ratio] 23.8 kg/m2 MD Maida Vaca Work Phone: [facility] 08-12-2023 10:04-0400 Body weight 79.83 kg MD Maida Vaca Work Phone: [facility] 08-12-2023 10:04-0400 Diastolic blood pressure 80 mm[Hg] MD Maida Vaca Work Phone: [facility] 08-12-2023 10:04-0400 Heart rate 93 /min MD Maida Vaca Work Phone: [facility] 08-12-2023 10:04-0400 Respiratory rate 18 /min MD Maida Vaca Work Phone: [facility] 08-12-2023 10:04-0400 SaO2% (BldA) [Mass fraction] 95 % MD Maida Vaca Work Phone: [facility] 08-12-2023 10:04-0400 Systolic blood pressure 142 mm[Hg] MD Maida Vaca Work Phone: [facility] 07-29-2023 13:30-0400 Body height 182.88 cm MD Maida Vaca Work Phone: [facility] 07-29-2023 13:30-0400 Body mass index (BMI) [Ratio] 24.5 kg/m2 MD Maida Vaca Work Phone: [facility] 07-29-2023 13:30-0400 Body weight 82.1 kg MD Maida Vaca Work Phone: [facility] 07-29-2023 13:30-0400 Diastolic blood pressure 100 mm[Hg] MD Maida Vaca Work Phone: [facility] 07-29-2023 13:30-0400 Heart rate 106 /min MD Maida Vaca Work Phone: [facility] 07-29-2023 13:30-0400 Respiratory rate 18 /min MD Maida Vaca Work Phone: [facility] 07-29-2023 13:30-0400 SaO2% (BldA) [Mass fraction] 97 % MD Maida Vaca Work Phone: [facility] 07-29-2023 13:30-0400 Systolic blood pressure 174 mm[Hg] MD Maida Vaca Work Phone: [facility] 07-16-2023 15:20-0400 Body height 181.[address] [facility] 07-16-2023 15:20-0400 Body mass index (BMI) [Ratio] 25.1 kg/m2 [facility] [facility] 07[facility]16[facility]2023 15:20-[address] [facility] 07-16-2023 15:20-0400 Diastolic blood pressure 92 mm[Hg] [facility] 07-16-2023 15:20-0400 Heart rate 91 /min [facility] 07-16-2023 15:20-0400 Systolic blood pressure 164 mm[Hg] [facility] 06-06-2023 15:23-0400 Body height 181.[address] [facility] 06-06-2023 15:23-0400 Body mass index (BMI) [Ratio] 25.3 kg/m2 [facility] 06-06-2023 15:23-0400 Body weight 83.[address] [facility] 06-06-2023 15:23-0400 Diastolic blood pressure 90 mm[Hg] [facility] 06-06-2023 15:23-0400 Heart rate 69 /min [facility] 06-06-2023 15:23-0400 Systolic blood pressure 150 mm[Hg] [facility] 04-23-2023 15:30-0500 Body height 181.61 cm Maida Vaca Other [facility] 04-23-2023 15:30-0500 Body mass index (BMI) [Ratio] 25.03 kg/m2 Maida Vaca Other [facility] 04-23-2023 15:30-0500 Body weight 82.56 kg Maida Vaca Other [facility] Other 04-23-2023 15:30-0500 Body weight 82.[address] [facility] 04-23-2023 15:30-0500 Diastolic blood pressure 98 mm[Hg] Maida Vaca Other [facility] 04-23-2023 15:30-0500 Systolic blood pressure 158 mm[Hg] Maida Vaca Other [facility] 10-29-2022 15:30-0400 Body height 181.61 cm Maida Vaca Other [facility] Other 10-29-2022 15:30-0400 Body mass index (BMI) [Ratio] 24.48 kg/m2 Maida Vaca Other [facility] Other 10-29-2022 15:30-0400 Body weight 80.74 kg Maida Vaca Other [facility] Other 10-29-2022 15:30-0400 Diastolic blood pressure 86 mm[Hg] Maida Vaca Other [facility] Other 10-29-2022 15:30-0400 SaO2% (BldA) [Mass fraction] 97 % Maida Vaca Other [facility] Other 10-29-2022 15:30-0400 Systolic blood pressure 140 mm[Hg] Maida Vaca Other [facility] Other Encounters Encounter Date Encounter Type Care Provider Facility Start: 01-20-2024 End: 01-20-2024 Patient encounter procedure MD Maida Vaca Work Phone: [facility] Start: 01-20-2024 End: 01-20-2024 ambulatory MD Maida Vaca Work Phone: [facility] Work Phone: Start: 01-20-2024 End: 01-20-2024 Patient encounter procedure MD Maida Vaca Work Phone: [facility] Work Phone: Start: 01-16-2024 End: 01-16-2024 Patient encounter procedure MD Maida Vaca Work Phone: [facility] [address] Work Phone: Start: 01-16-2024 End: 01-16-2024 ambulatory MD Maida Vaca Work Phone: [facility] Work Phone: Start: 12-03-2023 End: 12-03-2023 Patient encounter procedure MD Maida Vaca Work Phone: [facility] Work Phone: Start: 12-03-2023 End: 12-03-2023 ambulatory MD Maida Vaca Work Phone: [facility] Work Phone: Start: 11-26-2023 End: 11-26-2023 Patient encounter procedure MD Maida Vaca Work Phone: [facility] Work Phone: Start: 11-04-2023 End: 11-04-2023 Patient encounter procedure MD Maida Vaca Work Phone: [facility] Work Phone: Start: 10-09-2023 End: 10-09-2023 ambulatory KIRK LOYD Not Available Start: 09-11-2023 End: 09-11-2023 Patient encounter procedure MD Maida Vaca Work Phone: [facility] Work Phone: Start: 08-13-2023 End: 08-13-2023 Patient encounter procedure MD Maida Vaca Work Phone: [facility] [place] Work Phone: Start: 08-13-2023 End: 08-13-2023 ambulatory MD Maida Vaca Work Phone: [facility] Work Phone: Start: 08-12-2023 End: 08-12-2023 Patient encounter procedure MD Maida Vaca Work Phone: [facility] Work Phone: Start: 08-08-2023 End: 08-08-2023 Patient encounter procedure MD Maida Vaca Work Phone: [facility] [place] Work Phone: Start: 08-08-2023 End: 08-08-2023 ambulatory MD Maida Vaca Work Phone: [facility] Work Phone: Start: 07-29-2023 End: 07-29-2023 Patient encounter procedure MD Maida Vaca Work Phone: [facility] [place] Work Phone: Start: 07-29-2023 End: 07-29-2023 ambulatory MD Maida Vaca Work Phone: [facility] Work Phone: Start: 07-29-2023 End: 07-29-2023 ambulatory MD Maida Vaca Work Phone: [facility] Work Phone: Start: 07-29-2023 End: 07-29-2023 Patient encounter procedure MD Maida Vaca Work Phone: [facility] Work Phone: Start: 07-16-2023 End: 07-16-2023 ambulatory [facility] Work Phone: Start: 07-16-2023 End: 07-16-2023 Patient encounter procedure [facility] Work Phone: Start: 06-21-2023 Non-patient / Non-visit [facility] Work Phone: Start: 06-06-2023 End: 06-06-2023 ambulatory [facility] Work Phone: Start: 06-06-2023 End: 06-06-2023 Patient encounter procedure [facility] Work Phone: Start: 05-27-2023 Non-patient / Non-visit [facility] Work Phone: Start: 05-15-2023 End: 05-15-2023 ambulatory MELIA MCCLELLAN Not Available Start: 05-06-2023 End: 05-06-2023 ambulatory Maida Vaca Other [facility] Other Start: 05-06-2023 Telephone encounter Maida Vaca [facility] Start: 05-03-2023 End: 05-03-2023 ambulatory Maida Vaca Other [facility] Other Start: 05-03-2023 Telephone encounter Maida Jaron [facility] Start: 04-23-2023 End: 04-23-2023 ambulatory Maida Vaca Other [facility] Other Start: 04-23-2023 Office outpatient vi sit 15 minutes Maida Vaca [facility] Start: 04-23-2023 End: 04-23-2023 Patient encounter procedure [facility]- Start: 04-18-2023 End: 04-18-2023 ambulatory Sarah Mane Other [facility] Other Start: 04-18-2023 Office outpatient vi sit 15 minutes Sarah Mane [facility] Start: 04-17-2023 End: 04-17-2023 ambulatory MELIA MCCLELLAN Not Available Start: 02-28-2023 End: 02-28-2023 ambulatory Maida Vaca Other [facility] Other Start: 02-28-2023 Telephone encounter Maida Jaron [facility] Start: 02-19-2023 End: 02-19-2023 ambulatory Maida Vaca Other [facility] Other Start: 02-19-2023 Telephone encounter Maida Jaron [facility] Start: 12-31-2022 End: 12-31-2022 ambulatory Maida Vaca Other [facility] Other Start: 12-31-2022 Telephone encounter Maida Vaca [facility] Start: 11-30-2022 End: 11-30-2022 ambulatory Maida Vaca Other [facility] Other Start: 11-30-2022 Telephone encounter Maida Vaca [facility] Start: 10-29-2022 End: 10-29-2022 ambulatory Maida Vaca Other [facility] Other Start: 10-29-2022 Encounter for genera l adult medical examination without abnormal findings Maida Vaca [facility] Start: 10-29-2022 Office outpatient ne w 30 minutes Maida Vaca [facility] Start: 02-05-2022 Encounter for genera l adult medical examination without abnormal findings DR LIZZETTE STAUFFER [facility] Start: 02-01-2022 End: 02-02-[address] LIZZETTE STAUFFER Facility:[facility] Start: 02-01-2022 End: 02-02-2022 Encounter for general adult medical examination without abnormal findings DR LIZZETTE STAUFFER Facility:[facility] Start: 06-07-2021 End: 06-08-[address] Chito Welch Facility:[facility] Procedures Date Procedure Procedure Detail Performing Clinician Start: 01-20-2024 Plain X-ray of left hip MD Maida Vaca Work Phone: Start: 01-16-2024 MRI of left knee MD Rachel Vaca Work Phone: Start: 12-03-2023 Radiologic examinati on of knee MD Maida Vaca Work Phone: Start: 12-03-2023 X-ray of right knee MD Maida Vaca Work Phone: Start: 08-13-2023 Doppler ultrasonogra phy of kidney MD Maida Vaca Work Phone: Start: 02-01-[address] YARELI STAUFFER Comment on above: Performed By: #### P SAD #### [facility] [address] [place] [address] Dr. Kaykay Easton Plan of Treatment Date Care Activity Detail Author Start: 11-26-2023 Patient referral [facility] Work Phone: Start: 07-29-2023 Aldosterone [Mass/vo lume] in Serum or Plasma [facility] Start: 07-29-2023 Renin [Enzymatic activity/volume] in Plasma [facility] Start: 07-29-2023 [facility] Patient referral [facility] Work Phone: [facility] US Unspecified body region [facility] Payers Date Payer Category Payer Self-pay 1960 Unknown [id number] 2.16.84 [id number] 1960 Unknown [id number] 2.16.84 [id number] 1960 Unknown [id number] 2.16.84 [id number] 1960 Unknown [id number] 2.16.84 [id number] 1960 Unknown [id number] 2.16.84 [id number] 1960 Unknown [id number] 2.16.84 [id number] 1959 Unknown [id number] Unknown [id number] 2.16.8 [id number] Unknown [id number] 2.16.8 [id number] Unknown [id number] 2.16.8 [id number] Unknown [id number] 2.16.8 [id number] Unknown [id number] 2.16.8 [id number] Unknown [id number] 2.16.8 [id number] Unknown [id number] 2.16.8 [id number] Social History Date Type Detail Facility Unknown if ever smoked [facility] Other Sex Assigned At Sex Assigned At Bir th [facility] Other Start: 1960 Sex Assigned At Male F [facility] Start: 07-29-2023 End: 11-04-2023 Tobacco smoking status NHIS Smoker (finding) [facility] Clinical Notes 06-07-2021 to 05-06-2023 Note Date & Type Note Facility 05-06-2023 Evaluation note Encounter Date Diagnosis Assessment Notes Apr, Essential (primary) hypertension (ICD-10 - I10) [facility] Other 01-30-2024 Evaluation note* Encounter Date Diagnosis Assessment Notes Treatment Notes Treatment Clinical Notes Mar, Essential (primary) hypertension (ICD-10 - I10) Change meds, recheck bps next week, followup as scheduled. Mar, Anxiety (ICD-10 - F41.9) chronic problem, stable on present med OARRS reviewed. [facility] Other 01-25-2024 Evaluation note* Encounter Date Diagnosis Assessment Notes Treatment Notes Treatment Clinical Notes Mar, Acute non-recurrent maxillary sinusitis (ICD-10 - J01.00) Will tx tody for bacterial sinusitis based on physical exam and duration of symptoms. Take antibiotic as prescribed, complete entire course of therapy even if symptoms resolve. OK to take OTC Mucinex (no D or DM) or Corocidin HPB. Continue the antibioitc for 7-10 dasy as prescribed by his eye doctor. Supportive care as directed, push fluids and rest, Tylenol/Motrin as directed for aches/fever, warm moist compress over sinuses several times a day, cool mist humidifier, nasal saline spray as directed. Symptoms should improve in the next 3 days, if symptoms persist follow up with PCP. Immediate eval for warning s/sx as discussed. Patient verbalizes understanding and is agreeable to treatment plan. 25 Josh, 2024 Hordeolum externum of left upper eyelid (ICD-10 - H00.014) Moist, warm compress to eye for 15 minutes several times a day. Follow up eye doctor if symptoms persist for more then 1 week or change. Immediate eval if eye becomes red, swollen, drainage, vision changes, fever, headache, N/V, or any other new or concerning symptom. Patient verbalizes understandig and is agreeable to treatment plan. [facility] Other 12-07-2023 Evaluation note* Encounter Date Diagnosis Assessment Notes Treatment Notes Treatment Clinical Notes Feb, Anxiety (ICD-10 - F41.9) [facility] Other 10-09-2023 Evaluation note* Encounter Date Diagnosis Assessment Notes Treatment Notes Treatment Clinical Notes Dec, Anxiety (ICD-10 - F41.9) [facility] Other 09-08-2023 Evaluation note* Encounter Date Diagnosis Assessment Notes Treatment Notes Treatment Clinical Notes Nov, Anxiety (ICD-10 - F41.9) [facility] Other 08-07-2023 Evaluation note* Encounter Date Diagnosis Assessment Notes Treatment Notes Treatment Clinical Notes Oct, Anxiety (ICD-10 - F41.9) Pt states he is stable on present med and dose. Discussed weaning and titrating down when ready. Oct, Smoker (ICD-10 - F17.200) 18 yr pack history - does not qualify for LDCT Advised quitting smoking Oct, Essential (primary) hypertension (ICD-10 - I10) Chronic problem. Due for labs next month. Oct, Wellness examination (ICD-10 - Z00.00) Lab order provided w wellness code. Oct, Screening PSA (prostate specific antigen) (ICD-10 - Z12.5) [facility] Other 02-01-2023 History general Narrative - Reported* Type Description Date Medical History hypertension Medical History COPD Surgical History shoulder surgery Surgical History Colonoscopy 04/2022 Surgical History EGD 04/2022 [facility] Other 03-16-2022 NotePROCEDURE: XR ANKLE LT MIN 3 V COMPARISON: None. HISTORY: Arthralgia of the ankle and/or foot FINDINGS: BONES:No acute fracture or dislocation. 1.4 x 0.6 cm area of mixed subchondral lytic and sclerotic change along the medial talar dome. Mild enthesopathic spurring of the calcaneus at the Achilles insertion SOFT TISSUES:Negative. No visible soft tissue swelling. EFFUSION:None visible. OTHER: Negative. IMPRESSION: 1.4 cm osteochondral injury medial talar dome Electronically authenticated by: CHITO WELCH Date: 2021-06-07 [facility]:07[facility] note[facility] InformationNort [facility] Other Evaluation noteNo assessment information available [facility] Work Phone: Evaluation note* Diagnosis Onset Date Resolution Status Anxiety acute Essential (primary) hypertension acute [facility] Work Phone: Evaluation note* Diagnosis Onset Date Resolution Status Anxiety acute Essential (primary) hypertension acute Anxiety acute Essential (primary) hypertension acute [facility] Work Phone: Evaluation note* Diagnosis Onset Date Resolution Status Anxiety acute Essential (primary) hypertension acute Anxiety acute Essential (primary) hypertension acute Abnormal EKG acute Essential (primary) hypertension acute Resistant hypertension acute [facility] Work Phone: Evaluation note* Diagnosis Onset Date Resolution Status Anxiety acute Essential (primary) hypertension acute Abnormal EKG acute Essential (primary) hypertension acute Resistant hypertension acute Anxiety acute Left medial knee pain acute Injury of meniscus of left knee acute [facility] Work Phone: Evaluation note* Diagnosis Onset Date Resolution Status Abnormal EKG acute Essential (primary) hypertension acute Resistant hypertension acute Anxiety acute Left medial knee pain acute Injury of meniscus of left knee acute [facility] Work Phone: Evaluation note* Diagnosis Onset Date Resolution Status Abnormal EKG acute Essential (primary) hypertension acute Resistant hypertension acute Anxiety acute Left medial knee pain acute Injury of meniscus of left knee acute Impingement syndrome involvi ng patellar fat pad of left knee acute Injury of meniscus of left knee acute [facility] Work Phone: Summary Purpose Family History No Family History Records Found Relationship Condition Age at Onset Recorded Date/T eun father Hypertension Unknown Unknown grandparent Unknown Diabetes mellitus Unknown grandparent Diabetes mellitus Unknown Not Specified Diabetes mellitus Unknown Relationship Condition Age at Onset Recorded Date/T eun father Hypertension Unknown Unknown grandparent Unknown Diabetes mellitus Unknown Not Specified Diabetes mellitus Unknown Relationship Condition Age at Onset Recorded Date/T eun father Hypertension Unknown Unknown grandparent Unknown Diabetes mellitus Unknown mother Diabetes mellitus Unknown Advance Directives No Advanced Directives Records Found Advance Directive Response Recorded Date/ Time Advance Directives No April 23, 2023 4:51pm Chief Complaint and Reason for Visit Chief Complaint 3 Month Follow Up Amb Documentation Elevated BP Chief Complaint 3 Month Follow Up Amb Documentation Elevated BP Amb Documentation Check Up Reason for Visit Anxiety Essential (primary) hypertension Chief Complaint Amb Documentation Elevated BP Amb Documentation Check Up Essential Hypertension Reason for Visit Anxiety Essential (primary) hypertension Anxiety Essential (primary) hypertension Chief Complaint Amb Documentation Elevated BP Amb Documentation Check Up Essential Hypertension I10 Reason for Visit Anxiety Essential (primary) hypertension Anxiety Essential (primary) hypertension Abnormal EKG Essential (primary) hypertension Resistant hypertension Chief Complaint Amb Documentation Elevated BP Amb Documentation Check Up Essential Hypertension I10 i10 Reason for Visit Anxiety Essential (primary) hypertension Anxiety Essential (primary) hypertension Abnormal EKG Essential (primary) hypertension Resistant hypertension Chief Complaint Amb Documentation Elevated BP Amb Documentation Check Up Essential Hypertension I10 i10 BP Check I10 R6.00 Reason for Visit Anxiety Essential (primary) hypertension Anxiety Essential (primary) hypertension Abnormal EKG Essential (primary) hypertension Resistant hypertension Chief Complaint check up 3 Months Left knee pain M25.562 - Pain in left knee CONSULT DR. VACA LT KNEE PAIN, NX Reason for Visit Anxiety Essential (primary) hypertension Abnormal EKG Essential (primary) hypertension Resistant hypertension Anxiety Left medial knee pain Injury of meniscus of left knee Chief Complaint 3 Months Left knee pain M25.562 - Pain in left knee CONSULT DR. VACA LT KNEE PAIN, NX S83.8X2A Reason for Visit Abnormal EKG Essential (primary) hypertension Resistant hypertension Anxiety Left medial knee pain Injury of meniscus of left knee Chief Complaint 3 Months Left knee pain M25.562 - Pain in left knee CONSULT DR. VACA LT KNEE PAIN, NX S83.8X2A MRI RESULTS M25.562 - Pain in left knee Reason for Visit Abnormal EKG Essential (primary) hypertension Resistant hypertension Anxiety Left medial knee pain Injury of meniscus of left knee Impingement syndrome involving patellar fat pad of left knee Injury of meniscus of left knee Additional Source Comments (unrecognized sect ion and content) No Status Records FoundNo Status Records FoundNo Status Records Found INFORMATION SOURCE (unrecogn ized section and content) DATE CREATED AUTHOR 02/05/2022 [facility] DATE CREATED AUTHOR AUTHOR'S ORGANIZ ATION 10/13/2023 [facility] EPIC DATE CREATED AUTHOR AUTHOR'S ORGANIZ ATION 01/26/2024 [facility] REASON FOR VISIT (unrecogniz ed section and content) establish careRefillsrefillN o Informationlab resultsRefillleft eye swelling - possible pink eye3 month Follow upRefillbp Care Teams (unrecognized sec tion and content) Team Status: Active Member Role Status Dates Maida Vaca MD Primary Care Provider Active Team Status: Active Member Role Status Dates Maida Vaca MD Primary Care Provider Active Start: May 27, 2023 Lauren Scherer LPN Attending Provider Active S tart: May 27, 2023 Team Status: Inactive Member Role Status Dates Maida Vaca MD Primary Care Provide r, Attending Provider Active Start: June 06, 2023 End: June 06, 2023 Team Status: Active Member Role Status Dates Maida Vaca MD Primary Care Provider Active Start: June 21, 2023 POLY Hawk Attending Provider Active Start : June 21, 2023 Team Status: Inactive Member Role Status Dates Maida Vaca MD Primary Care Provide r, Attending Provider Active Start: July 16, 2023 End: July 16, 2023 Team Status: Inactive Member Role Status Dates Maida Vaca MD Primary Care Provide r, Referring Provider Active Start: July 29, 2023 End: July 29, 2023 Richard Mallory MD Attending Provider Activ e Start: July 29, 2023 End: July 29, 2023 Team Status: Active Member Role Status Dates Maida Vaca MD Primary Care Provider Active Start: July 29, 2023 Richard Mallory MD Attending Provider Activ e Start: July 29, 2023 Team Status: Inactive Member Role Status Dates Maida Vaca MD Attending Provider Active St art: April 23, 2023 End: April 23, 2023 Team Status: Inactive Member Role Status Dates Maida Vaca , MD Primary Care Provider Active Start: July 29, 2023 End: July 29, 2023 Richard Mallory MD Attending Provider Activ e Start: July 29, 2023 End: July 29, 2023 Team Status: Inactive Member Role Status Yony Vaca MD Primary Care Provider Active Start: August 08, 2023 End: August 08, 2023 Richard Mallory MD Attending Provider Activ e Start: August 08, 2023 End: August 08, 2023 Team Status: Inactive Member Role Status Yony Vaca MD Primary Care Provider Active Start: August 12, 2023 End: August 12, 2023 Richard Mallory MD Attending Provider Activ e Start: August 12, 2023 End: August 12, 2023 Team Status: Inactive Member Role Status Yony Vaca MD Primary Care Provider Active Start: August 13, 2023 End: August 13, 2023 Richard Mallory MD Attending Provider Activ e Start: August 13, 2023 End: August 13, 2023 Team Status: Active Member Role Status Yony Mallory MD Manufacturing Lab Technician Active Maida Vaca MD Primary Care Provider Active Team Status: Inactive Member Role Status Yony Vaca MD Primary Care Provide r, Attending Provider Active Start: September 11, 2023 End: September 11, 2023 Team Status: Inactive Member Role Status Yony Vaca MD Primary Care Provider Active Start: November 04, 2023 End: November 04, 2023 Richard Mallory MD Attending Provider Activ e Start: November 04, 2023 End: November 04, 2023 Team Status: Inactive Member Role Status Yony Vaca MD Primary Care Provide r, Attending Provider Active Start: November 26, 2023 End: November 26, 2023 Team Status: Inactive Member Role Status Yony Vaca MD Primary Care Provider Active Start: December 03, 2023 End: December 03, 2023 Eduard Vazquez DO Attending Provider Active St art: December 03, 2023 End: December 03, 2023 Team Status: Inactive Member Role Status Yony Vaca MD Primary Care Provider Active Start: January 16, 2024 End: January 16, 2024 Eduard Vazquez DO Attending Provider Active St art: January 16, 2024 End: January 16, 2024 Team Status: Inactive Member Role Status Dates Maida Vaca MD Primary Care Provider Active Start: January 20, 2024 End: January 20, 2024 Eduard Vazquez DO Attending Provider Active St art: January 20, 2024 End: January 20, 2024 Goals (unrecognized section and content) Goals may be documented in a n alternate section FOR RECORDS PERTAINING TO PATIENTS WHO ARE OR HAVE BEEN ENROLLED IN A CHEMICAL DEPENDENCY/SUBSTANCEABUSE PROGRAM, SOME INFORMATION MAY BE OMITTED. This clinical summary was aggregated from multiple sources. Caution should be exercised in using it in the provision of clinical care. This summary normalizes information from multiple sources, and as a consequence, information in this document may materially change the coding, format and clinical context of patient data. In addition, data may be omitted in some cases. CLINICAL DECISIONS SHOULD BE BASED ON THE PRIMARY CLINICAL RECORDS. [facility]. provides no warranty or guarantee of the accuracy or completeness of information in this document.
[2024-06-02 08:48] LABS: Chol HDL Ratio 1.7; Cholesterol 171 mg/dL (<=200); HDL Cholesterol 103 mg/dL (40-60); Triglycerides 30 mg/dL (<=150)
[2024-06-02 09:31] LABS: Prostate Specific Antigen Scrn 2.21 ng/mL (<=4.00)
== END 2024-06-02 07:06 | disposition home or self-care (01) ==
LOC: LAB 07:08
PROVIDERS: PCP Family Medicine; Visit Provider Family Medicine
DX: Z00.00 Encounter for general adult medical examination without abnormal findings (principal); Z12.5 Encounter for screening for malignant neoplasm of prostate
CPT/HCPCS: 36415; 80061; G0103